=== PATIENT | female | born 1965 | race Caucasian/White ===

== ENCOUNTER 2016-06-05 13:46 | Inpatient (IN) | payer OTHER ==
[~2016-06-05] VITALS: Ht 160 cm; Wt 76.8 kg
[2016-06-05] MEDS ORDERED: IBUPROFEN800 MG PO (15:10)
[2016-06-05] MEDS ORDERED: TYLENOL WITH C1 EACH PO (15:12)
[2016-06-05 16:04] LABS: EOSINOPHIL (%) 0 % (0-5); HEMATOCRIT 42.6 % (36.0-46.0); IMMATURE GRANULOCYTE (%) 0.3 % (0.0-0.7); INSTRUMENT ABS NEUTROPHIL CT 6.9 K/uL; LYMPHOCYTE COUNT 0.7 K/uL (1.0-2.8); MCH 30.6 PG (29.0-34.0); MCHC 33.3 G/DL (30.0-36.0); MCV 91.8 FL (83-99); MEAN PLAT.VOLUME 9.9 uM^3 (9.5-12.4); MONOCYTE (%) 0.5 % (3-12); NEUTROPHIL (%) 90.2 % (45-76); NEUTROPHIL COUNT 6.9 K/uL (1.8-6.4); PLATELET COUNT 309 K/uL (156-360); RBC DIS.WIDTH-CV 11.7 % (11.8-14.6); RBC DIS.WIDTH-SD 39.2 % (39-53); RED BLOOD COUNT 4.64 M/uL (3.80-5.20); WHITE BLOOD COUNT 7.7 K/uL (4.1-10.2)
[2016-06-05 16:15] LABS: CHLORIDE 107 mEq/L (99-109); POTASSIUM 4.4 mEq/L (3.7-5.4); SODIUM 138 mEq/L (136-147)
[2016-06-05 16:17] LABS: GLUCOSE 133 mg/dL (70-99)
[2016-06-05 16:18] LABS: ANION GAP 8 MEQ/L (2-14)
[2016-06-05 16:21] LABS: GFR ESTIMATE (CALCULATED) > 59 mL/min/
[2016-06-05 16:22] LABS: UREA NITROGEN (BUN) 10 mg/dL (9-23)
[2016-06-05 17:24] LABS: TOTAL BILIRUBIN 0.5 mg/dL (0.0-1.0)
[2016-06-05 17:25] LABS: ALKALINE PHOSPHATASE 77 IU/L (3-129)
[2016-06-05 20:31] VITALS: BP 123/69
[2016-06-05 22:28] VITALS: BP 115/75
[2016-06-06 06:45] LABS: INFLUENZA A VIRAL ANTIGEN NEGATIVE; INFLUENZA B VIRAL ANTIGEN NEGATIVE
[2016-06-06 07:24] LABS: ANION GAP 9 MEQ/L (2-14); CHLORIDE 108 MEQ/L (99-109); GFR ESTIMATE (CALCULATED) > 59 mL/min/; POTASSIUM 3.9 MEQ/L (3.7-5.4); SAMPLE HEMOLYSIS CHECK 0; SAMPLE ICTERIC CHECK 0; SAMPLE LIPEMIA CHECK 0; SODIUM 140 MEQ/L (136-147); UREA NITROGEN (BUN) 15 mg/dL (9-23)
[2016-06-06 07:26] LABS: GLUCOSE 97 mg/dL (70-99)
[2016-06-06 07:29] LABS: HEMATOCRIT 36.6 % (36.0-46.0); MCH 30.8 PG (29.0-34.0); MCHC 33.9 G/DL (30.0-36.0); MEAN PLAT.VOLUME 10.2 uM^3 (9.5-12.4); PLATELET COUNT 269 K/uL (156-360); RBC DIS.WIDTH-CV 11.7 % (11.8-14.6); RBC DIS.WIDTH-SD 39.2 % (39-53); RED BLOOD COUNT 4.02 M/uL (3.80-5.20); WHITE BLOOD COUNT 10.4 K/uL (4.1-10.2)
[2016-06-06 07:49] VITALS: BP 98/59
[2016-06-06 15:46] VITALS: BP 92/58
[2016-06-06 23:11] VITALS: BP 145/67
[2016-06-07 07:25] VITALS: BP 111/79
[2016-06-07] MEDS ORDERED: AUGMENTIN875 MG PO (08:01)
[2016-06-07] MEDS ORDERED: PERCOCET 5/31 TABLET PO (11:15)
[2016-06-07] MEDS ORDERED: ULTRAM50 MG PO (12:21)
== END 2016-06-07 14:02 | disposition home or self-care (01) | DRG 153 ==
LOC: EME 13:46 → EDOF 16:13 → 5EAST 20:21
PROVIDERS: Emergency Medicine; Internal Medicine
DX: J02.9 Acute pharyngitis, unspecified (principal); R13.10 Dysphagia, unspecified
CPT/HCPCS: 80048; 80053; 83605; 85025; 85027; 87502; 87651 90; 99281; 99285; J0295; J1885; J7030; J7050